=== PATIENT | male | born 1960 | race Hispanic/Latino ===

== ENCOUNTER 2020-12-28 13:29 | Inpatient (IN) | payer SELFPAY ==
[2020-12-28] VITALS (13 sets, daily range): BP systolic 133–144; BP diastolic 80–115; PULSE 49–90; RESP 16–20; TEMP 36.2–36.6; O2SAT 96–100; BMI 30.5; BMI 30.6
--- NOTE | ~2020-12-28 | XR_ITS ---
EXAMINATION: XR chest 1V portable EXAM DATE: 12/28/2020 13:50 INDICATION: Chest pain. TECHNIQUE: Portable AP frontal chest x-ray was obtained. There is no prior study for comparison. 0 FINDINGS: The lungs are clear. There are no pleural effusions. Cardiac silhouette is prominent but magnified on this AP technique. There is no pneumothorax suspected. The bones and soft tissues are unremarkable. IMPRESSION: No acute cardiopulmonary findings. Reviewed, dictated and finalized at location A.
--- NOTE | 2020-12-28 13:38 | ECG_ITS ---
Measurements Intervals [place] Rate: 90 P: 47 ID: [id number] QRS: -35 QRSD: 85 T: 4 QT: 351 QTc: 431 Interpretive Statements SINUS RHYTHM LEFT AXIS DEVIATION BORDERLINE R WAVE PROGRESSION, ANTERIOR LEADS BORDERLINE T WAVE ABNORMALITY- INFERIOR LEADS BASELINE WANDER- II, III, AVF BORDERLINE ECG Electronically Signed On 12-28-2020 17:49:34 CDT by Herbert Eduardo D.O.
--- NOTE | 2020-12-28 13:39 | ED.CHESTPAIN ---
HPI - Chest Pain General Chief Complaint: Chest Pain Stated Complaint: chest pain x30 mins Time Seen by Provider: 12/28/20 13:30 Source: patient, EMS and RN notes reviewed Mode of arrival: EMS Limitations: no limitations History of Present Illness HPI narrative: This is a 60 year old male with history of DM who presents for evaluation of left chest pain. He states approximately 1 hour ago he developed chest pain with left arm pain. He states his pain is worse with movement of his arm. He also reports nausea. He denies sob, diaphoresis. He also reports he had chest pain a couple days ago. He was given aspirin 324 mgPO and SL nitro by EMS. He reports his chest pain is currently 5/10 . He reports approximately 20 years ago he had a heart catheterization but it does not sound like he had stents placed. Related Data Home Medications Medication Instructions Recorded Confirmed gabapentin 600 mg PO DAILY 12/28/20 12/28/20 metformin 500 mg PO DAILY 12/28/20 12/28/20 Allergies Allergy/AdvReac Type Severity Reaction Status Date / Time No Known Allergies Allergy Verified 12/28/20 13:41 Review of Systems Review of Systems: All systems reviewed & are unremarkable except as noted in HPI and below PMFSH Past Medical History Medical History (Updated 12/28/20 @ 18:21 by Janine Mendes MD) Diabetes mellitus History of left heart catheterization Social History Social History (Updated 12/28/20 @ 18:14 by Janine Mendes MD) Smoking packs per day: 1 Smoking cigarettes per day: 20.0 Smoking status: Current every day smoker Alcohol intake: current Drinks per week: 1 Substance use: never Gender identity (if verbalized by the patient): Male Spiritual care concerns: No Exam Const: General: no acute distress and alert Orientation/consciousness: patient oriented x3 Eyes: Pupils: Equal, round and reactive pupils present EOM: EOMs intact bilaterally Chest: Chest palpation & inspection: normal inspection of the chest Resp: Effort & Inspection: normal respiratory effort and no retractions Auscultation: clear to auscultation bilaterally Cardio: Rate: regular rate Rhythm: regular rhythm Heart sounds: no murmurs GI: GI Palp: Yes Soft to palpation, No Tenderness to palpation present (GI) and No Guarding due to palpation present (GI) Auscultation: normal bowel sounds Skin: General skin exam: normal color Rashes: no rashes Neuro: General: patient oriented x3, moves all extremities, no focal motor deficits and CN's II-XI intact bilaterally Speech: normal speech Extrem: General: normal to inspection Other: no arm swelling, no drift, strong bilateral radial pulses, Psych: Mental Status: mental status grossly normal Affect: normal affect Course Consultations Consultation #1: I discussed case with Dr. Henderson. PAtient denies chest pain currently. He states patient can be placed on heparin and he will see. He states patient will likely need cath at some point but no right now. He will reassess. Date: 12/28/20 Time: 14:30 Consultation #2: I discussed case with Imani Plaza while she was in ER. She accepts patient to service. Date: 12/28/20 Time: 14:30 Vital Signs Vital signs: Vital Signs Temperature 97.8 F 12/28/20 13:33 Pulse Rate 90 12/28/20 13:33 Respiratory Rate 16 12/28/20 13:33 Blood Pressure 137/115 H 12/28/20 13:33 Pulse Oximetry 98 12/28/20 13:33 Temperature 97.8 F 12/28/20 13:33 Pulse Rate 56 L 12/28/20 17:36 Respiratory Rate 20 12/28/20 17:36 Blood Pressure 133/94 H 12/28/20 17:36 Pulse Oximetry 100 12/28/20 17:36 MDM - Chest Pain Lab Data Attestation: I reviewed the patient's lab results. Result diagrams: 12/28/20 13:42 12/28/20 13:42 Labs: Lab Results 12/28/20 12/28/20 12/28/20 Range/Units 13:42 13:42 13:42 WBC 8.6 (4.5-10.0) K/mm3 RBC 5.02 (4.6-6.20) M/mm3 Hgb 14.8 (14.0-18.0)
[2020-12-28 13:48] LABS: Basophils Absolute Auto 0.1 K/mm3 (0.0-0.1); Basophils Percent Auto 0.7 % (0.2-1.2); Eosinophils Absolute Auto 0.2 K/mm3 (0-0.3); Eosinophils Percent Auto 2.6 % (0-4.4); Hematocrit 42.3 % (42.0-52.0); Hemoglobin 14.8 g/dL (14.0-18.0); Immature Granulocyte Absolute 0.04 K/mm3 (0.00-0.031); Immature Granulocyte Percent A 0.5 % (0-0.5); Lymphocytes Absolute Auto 3.38 K/mm3 (0.9-3.2); Lymphocytes Percent Auto 39.5 % (18.3-44.2); Mean Corpuscular Hemoglobin 29.5 pg (26-34); Mean Corpuscular Volume 84.3 fl (80-100); Mean Platelet Volume 9.8 fl (7.4-10.4); Monocytes Absolute Auto 0.6 K/mm3 (0.1-0.6); Monocytes Percent Auto 7.3 % (2.6-8.5); Neutrophils Absolute Auto 4.2 K/mm3 (1.3-6.7); Neutrophils Percent Auto 49.4 % (45.5-73.1); Platelet Count Result 259 k/mm3 (150-375); Red Blood Count 5.02 M/mm3 (4.6-6.20); Red Cell Distribution Width 12.2 % (11.5-14.5); White Blood Count 8.6 K/mm3 (4.5-10.0)
[2020-12-28] MEDS: NITROGLYCERIN OINTMENT 1 INCH DOSE TRANSDERM (13:54)
[2020-12-28 13:59] LABS: Anion Gap 12 mmol/L (8-16); Blood Urea Nitrogen 12 mg/dL (9-20); Calcium 9.7 mg/dL (8.4-10.2); Carbon Dioxide 24 mmol/L (22-30); Chloride 106 mmol/L (98-107); Estimated CRCL calculation 82 ml/min; Estimated Glomerular Filt Rate > 60; Glucose 278 mg/dL (75-110); INR 0.9; Potassium 3.9 mmol/L (3.4-5.0); Prothrombin Time 12.4 Seconds (11.1-14.7); Sodium 142 mmol/L (137-145)
[2020-12-28 14:00] LABS: Partial Thromboplastin Time 26.8 SECONDS (22.3-36.8)
[2020-12-28 14:13] LABS: Troponin I 0.326 ng/mL (0.000-0.034)
[2020-12-28] MEDS: METOPROLOL TARTRATE 50 MG TAB PO (15:12)
[2020-12-28] MEDS: ONDANSETRON INJ 4 MG/2 ML VIAL IV PUSH (15:13)
[2020-12-28] MEDS: HEPARIN SODIUM 5,000 UNITS/ML VIAL 4000 UNITS IV PUSH (15:13)
[2020-12-28] MEDS: MORPHINE SULFATE (*CRX) 4 MG/ML INJ IV PUSH (15:13)
[2020-12-28] MEDS: HEPARIN SOD/D5W 100 UNITS/ML 25,000 UNITS/250 ML BAG 10 UNITS IV CONT (15:14)
--- NOTE | 2020-12-28 18:20 | PC.NURSE ---
This patient, Isidro Castillo, was admitted to IMU Room 207-01. Patient/family oriented to hospital policies and general routines including ID bracelet, bed and alarms, visiting hours, pain management, procedures, bathroom and other care routines, personal items, smoking policy, room service/diet, and visiting hours. Information on how to activate the Rapid Response Team has been discussed. Patient/Family are encouraged to report perceived risks to care and to ask questions if they do not understand what they are told or what they should do.
--- NOTE | 2020-12-28 19:27 | PM.IMHP ---
H&P: HPI History of Present Illness Date/Time: 12/28/20 19:27 this is a 60-year-old male patient who has a history of diabetes with his last A1c around 8. 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 Patient states that he may be under more stress than usual. The patient stated that he thinks that he had a cardiac catheterization in the past and had angioplasty in his 30s. The patient stated that 2 days ago he had chest pain that radiated to his left arm but then it resolved on its own. 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 For left chest pain. The patient stated that he had chest pain again 1 hour prior to coming to the emergency room. Radiated to his left arm. He said he felt slightly nauseated. The pain was worse with movement of his left arm. The patient was given a full-strength aspirin and nitro EN route. The patient stated he did have anymore chest pain med as left arm so continue to hurt. Cardiology has been consulted. The patient's troponin pulled and at baseline was 0.326 And the 3 hours 0.980. The patient was started on a heparin drip., morphine, Zofran, and metoprolol in the emergency room. The patient is being admitted to inpatient services on the date of service of 12/28/2020 Chief Complaint: Chest pain Review of Systems Review of Systems: All systems reviewed & are unremarkable except as noted in HPI and below Constitutional: Constitutional: Reports as per HPI and Reports no additional constitutional complaints Eyes: Eyes: Reports as per HPI and Reports no additional eye complaints ENT: Reports system reviewed and no additional complaints, except as documented and Reports Normal hearing present Cardiovascular: Cardiovascular: Reports no additional cardiovascular complaints Respiratory: Respiratory: Reports no additional respiratory complaints and Reports no additional respiratory complaints Gastrointestinal: Gastrointestinal: Reports as per HPI and Reports no additional gastrointestinal complaints Musculoskeletal: Musculoskeletal: Reports no additional musculoskeletal complaints Integumentary/Breasts: Skin/Breast: Reports system reviewed and no additional complaints, except as docu and Reports as per HPI Neurologic: Reports system reviewed and no additional complaints, except as documented, Reports as per HPI and Reports Normal hearing present Psychiatric: Psychiatric: Reports no additional psychiatric complaints and Reports as per HPI Endocrine: Endocrine: Reports no additional endocrine complaints Hematologic/Lymphatic: Hematologic/Lymphatic: Reports no additional hematologic/lymphatic complaints Allergic/Immunologic: Allergic/Immunologic: Reports no additional allergic/immunologic complaints [facility] Past Medical History Medical History (Updated 12/28/20 @ 19:36 by Imani Plaza NP) Diabetes mellitus Last known A1c 8.0 History of left heart catheterization Peripheral neuropathy Surgical History Surgical History (Updated 12/28/20 @ 19:36 by Imani Plaza NP) No pertinent past surgical history Family History Family History Father Alzheimer disease Daughter Epilepsy Social History Social History (Updated 12/28/20 @ 19:38 by Imani Plaza NP) Social History: 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 The patient has 4 daughters. The patient continues to smoke a pack a cigarettes a day. He would be interested in smoking cessation. The patient denies any marijuana illicit drugs or alcohol. The patient desires to be a full code and his is the durable power [place] for healthcare. Smoking packs per day: 1 Smoking cigarettes per day: 20.0 Years smoked: 40 Smoking pack-years: 40.00 Smoking status: Current every day smoker Tobacco type: ciga
[2020-12-28 20:15] LABS: Basophils Absolute Auto 0.1 K/mm3 (0.0-0.1); Basophils Percent Auto 0.7 % (0.2-1.2); Eosinophils Absolute Auto 0.2 K/mm3 (0-0.3); Hematocrit 41.7 % (42.0-52.0); Hemoglobin 14.1 g/dL (14.0-18.0); Immature Granulocyte Absolute 0.04 K/mm3 (0.00-0.031); Immature Granulocyte Percent A 0.5 % (0-0.5); Lymphocytes Absolute Auto 3.64 K/mm3 (0.9-3.2); Lymphocytes Percent Auto 43.1 % (18.3-44.2); Mean Corpuscular HGB Conc 33.8 g/dl (32-36); Mean Corpuscular Hemoglobin 28.8 pg (26-34); Mean Corpuscular Volume 85.1 fl (80-100); Monocytes Absolute Auto 0.6 K/mm3 (0.1-0.6); Neutrophils Absolute Auto 3.9 K/mm3 (1.3-6.7); Neutrophils Percent Auto 46.7 % (45.5-73.1); Platelet Count Result 236 k/mm3 (150-375); Red Cell Distribution Width 12.2 % (11.5-14.5); White Blood Count 8.4 K/mm3 (4.5-10.0)
[2020-12-28 20:24] LABS: INR 0.9; Prothrombin Time 13.1 Seconds (11.1-14.7)
[2020-12-28 20:26] LABS: Partial Thromboplastin Time 71.5 SECONDS (22.3-36.8)
[2020-12-28 20:35] LABS: Glucose Point of Care 228 mg/dl (65-105)
[2020-12-28] MEDS: MELATONIN 3 MG TABLET PO (21:28)
[2020-12-29] VITALS (12 sets, daily range): BP systolic 104–124; BP diastolic 54–74; PULSE 56–89; RESP 16–20; TEMP 36.2–37.1; O2SAT 97–100
--- NOTE | 2020-12-29 00:37 | PC.NURSE ---
Pt transferred from room 207-1 to room 209-01 on 12/28/20 at 2345. All personal belongings transported with Pt.
[2020-12-29 02:02] LABS: Partial Thromboplastin Time 59.3 SECONDS (22.3-36.8)
[2020-12-29] MEDS: HEPARIN SODIUM 5,000 UNITS/ML VIAL 3500 UNITS IV PUSH ×2 (02:28→16:11)
[2020-12-29 07:53] LABS: Basophils Absolute Auto 0.1 K/mm3 (0.0-0.1); Basophils Percent Auto 0.6 % (0.2-1.2); Eosinophils Absolute Auto 0.2 K/mm3 (0-0.3); Eosinophils Percent Auto 1.5 % (0-4.4); Hematocrit 39.9 % (42.0-52.0); Hemoglobin 13.9 g/dL (14.0-18.0); Immature Granulocyte Absolute 0.04 K/mm3 (0.00-0.031); Immature Granulocyte Percent A 0.4 % (0-0.5); Lymphocytes Absolute Auto 3.11 K/mm3 (0.9-3.2); Lymphocytes Percent Auto 28.7 % (18.3-44.2); Mean Corpuscular HGB Conc 34.8 g/dl (32-36); Mean Corpuscular Volume 83.1 fl (80-100); Mean Platelet Volume 9.6 fl (7.4-10.4); Monocytes Absolute Auto 0.7 K/mm3 (0.1-0.6); Monocytes Percent Auto 6.3 % (2.6-8.5); Neutrophils Absolute Auto 6.8 K/mm3 (1.3-6.7); Neutrophils Percent Auto 62.5 % (45.5-73.1); Platelet Count Result 221 k/mm3 (150-375); Red Cell Distribution Width 11.9 % (11.5-14.5); White Blood Count 10.8 K/mm3 (4.5-10.0)
[2020-12-29 08:29] LABS: Alanine Aminotransferase 31 U/L (4-50); Albumin Level 3.8 g/dL (3.5-5.1); Alkaline Phosphatase 75 U/L (38-126); Anion Gap 9 mmol/L (8-16); Aspartate Amino Transferase 115 U/L (17-59); Bilirubin,Total 0.7 mg/dL (0.2-1.3); Blood Urea Nitrogen 11 mg/dL (9-20); Calcium 9.4 mg/dL (8.4-10.2); Carbon Dioxide 24 mmol/L (22-30); Chloride 105 mmol/L (98-107); Estimated CRCL calculation 74 ml/min; Estimated Glomerular Filt Rate > 60; Glucose 168 mg/dL (75-110); Magnesium 1.8 mg/dL (1.6-2.3); Potassium 4.3 mmol/L (3.4-5.0); Sodium 138 mmol/L (137-145)
[2020-12-29 08:45] LABS: Glucose Point of Care 162 mg/dl (65-105)
--- NOTE | 2020-12-29 09:03 | PM.CNCAR ---
Assessment and Plan Assessment and plan (1) Non-ST elevation [place] (NSTEMI): Code(s): I21.4 - Non-ST elevation (NSTEMI) myocardial infarction Status: Acute Assessment and Plan: With troponin as high as 4.6, currently pain-free, no ischemic ST-T changes at this time, he would continue on aspirin with heparin, start low-dose metoprolol, will plan cardiac catheterization in the morning. In the event that he has any recurrence of chest pain or if he has any significant ST-T changes then will consider doing a cardiac catheterization sooner (2) Diabetes mellitus: Code(s): E11.9 - Type 2 diabetes mellitus without complications Status: Chronic (3) Tobacco abuse: Code(s): Z72.0 - Tobacco use Status: Acute Assessment and Plan: He smokes 1 pack per day he stated that he is going to try to quit now Additional Plan Thank you for allowing me to participate in this patient's care, I will be following up with you. Please do not hesitate to call me for any other inquiry History of Present Illness History of Present Illness Consult date/time: 12/29/20 09:03 60 YEARS OLD GENTLEMAN WITH HISTORY OF DIABETES MELLITU, came to the hospital because of chest pain. 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 The symptoms started the day before with heaviness that was in an out until yesterday was significant pain with the heaviness to the shoulder and radiation to the left arm. Upon arrival to the hospital 1st troponin was borderline elevated but after was given nitroglycerin and heparin pain improved and he became pain-free and he is currently is pain-free. No known history of coronary disease no history of previous myocardial infarction, however he has history of diabetes and history of smoking. EKG does not show acute ST-T changes but showed nonspecific lateral ST changes. He has no significant shortness of breath no orthopnea no PNDs no palpitation no dizziness no lightheadedness Reason For Visit: NSTEMI Review of Systems Constitutional: Constitutional: Reports no additional constitutional complaints ENT: Reports system reviewed and no additional complaints, except as documented Cardiovascular: Cardiovascular: Reports as per HPI Respiratory: Respiratory: Reports as per HPI [facility] Past Medical History Medical History Diabetes mellitus Last known A1c 8.0 History of left heart catheterization Peripheral neuropathy Surgical History Surgical History No pertinent past surgical history Family History Family History Father Alzheimer disease Daughter Epilepsy Social History Social History Social History: 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 The patient has 4 daughters. The patient continues to smoke a pack a cigarettes a day. He would be interested in smoking cessation. The patient denies any marijuana illicit drugs or alcohol. The patient desires to be a full code and his is the durable power estate attorney for healthcare. Smoking packs per day: 1 Smoking cigarettes per day: 20.0 Years smoked: 40 Smoking pack-years: 40.00 Smoking status: Current every day smoker Tobacco type: cigarettes Second hand tobacco smoke exposure: Yes Alcohol intake: current Drinks per week: 1 Substance use: never Gender identity (if verbalized by the patient): Male Spiritual care concerns: No Meds Home Medications and Allergies Home Medications Medication Instructions Recorded Confirmed Type gabapentin 600 mg PO DAILY 12/28/20 12/28/20 History metform
[2020-12-29 10:49] LABS: Cholesterol 184 mg/dL (0-200); HDL Direct 37 mg/dL; Triglycerides 183 mg/dL (<150)
[2020-12-29 11:00] LABS: LDL Cholesterol Direct 124 mg/dL
[2020-12-29 12:49] LABS: Glucose Point of Care 264 mg/dl (65-105)
[2020-12-29] MEDS: INSULIN ASPART (*BKC) 100 UNITS/ML SUB-Q (13:30)
[2020-12-29] MEDS: GABAPENTIN 300 MG CAPSULE 600 MG PO (13:45)
[2020-12-29] MEDS: HEPARIN SOD/D5W 100 UNITS/ML 25,000 UNITS/250 ML BAG 12 UNITS IV CONT (14:25)
[2020-12-29 15:01] LABS: Prothrombin Time 13.4 Seconds (11.1-14.7)
[2020-12-29 15:19] LABS: Partial Thromboplastin Time 62.6 SECONDS (22.3-36.8)
--- NOTE | 2020-12-29 15:21 | PM.IMPN ---
Progress Note: A&P Assessment and Plan (1) Non-ST elevation [place] (NSTEMI): Code(s): I21.4 - Non-ST elevation (NSTEMI) myocardial infarction Status: Acute Assessment and Plan: Patient is currently pain-free. He is on a heparin drip. He has morphine ordered for any discomfort. He was given aspirin and nitro earlier. Continue to trend troponins. Cardiology has been consulted. (2) Diabetes mellitus: Code(s): E11.9 - Type 2 diabetes mellitus without complications Status: Chronic Assessment and Plan: Check A1c. Hold metformin in the event that patient may possibly have a cardiac catheterization. Sliding scale insulin Accu-Cheks AC and HS. (3) Tobacco abuse: Code(s): Z72.0 - Tobacco use Status: Acute Assessment and Plan: The patient has considered smoking cessation. We discussed this for approximately 5 minutes. He would like to try a nicotine patch however if the patient has having acute IA, now is not the time for him to start on a nicotine patch. However respiratory talked him home about smoking cessation (4) Peripheral neuropathy: Code(s): G62.9 - Polyneuropathy, unspecified Status: Chronic Assessment and Plan: Continue gabapentin. Additional Plan 12/29/2020 Patient doing well and remains chest pain-free continue heparin drip continue medical management per cardiology Cardiac catheterization in the morning NPO at midnight Smoking cessation counseling greater than 3 minutes Time Spent With Patient Time with patient: 25 - 35 minutes Subjective Date/time seen: 12/29/20 15:21 patient with very poor insight into his current medical condition. We review risk factors for heart attack given his young age With emphasis on things that he can change. Patient is remorseful that he has consumed drugs in his younger years and has lived a very unhealthy lifestyle in the past. Exam Const: General: cooperative, healthy appearing, comfortable, no acute distress, well developed, alert, awake and Physically active Nutritional Appearance: average body habitus and well nourished Orientation/consciousness: patient oriented x3 Limitations: no limitations HENMT: Head: normal to inspection, normocephalic and atraumatic Ears: hearing grossly normal bilaterally and external ears normal General nose exam: Normal external nose present Eyes: General: appearance normal, both eyes and all related structures Alignment and Position: alignment normal Periorbital: periorbital findings normal Eyelids: eyelids normal Conjunctivae: conjunctivae normal EOM: EOMs intact bilaterally Neck: Neck: normal visual inspection, full ROM and no lymphadenopathy Chest: Chest palpation & inspection: normal inspection of the chest Resp: Effort & Inspection: normal respiratory effort Auscultation: clear to auscultation bilaterally Cardio: Rate: regular rate Rhythm: regular rhythm Heart sounds: S1 normal heart sound present and S2 normal heart sound present Peripheral pulses: Peripheral pulses 2+ throughout GI: Inspection: normal to inspection Auscultation: normal bowel sounds Rectal Exam: deferred Skin: General skin exam: normal color Lesions: no lesions Rashes: no rashes Trauma: no lacerations or abrasions Wounds: no wounds Hair: normal Nails: normal Neuro: General: patient oriented x3 Cranial nerves: Yes Equal, round and reactive pupils present and Yes Normal hearing present Cognition (Neuro): normal cognition Speech: normal speech Gait exam (Neuro): Normal gait present Motor exam (neuro): 5/5 motor strength present throughout Sensory Exam: normal sensation Extrem: General: normal to inspection Psych: Appearance: grossly normal Mental Status: mental status grossly normal Speech and movement: Normal speech and movement present Affect: normal affect Attitude: cooperative Thought process: Normal thought process present Insight: Good insight present (Psych) [employer]
[2020-12-29 18:01] LABS: Glucose Point of Care 208 mg/dl (65-105)
[2020-12-29] MEDS: MELATONIN 3 MG TABLET PO (20:52)
[2020-12-29 20:53] LABS: Glucose Point of Care 302 mg/dl (65-105)
[2020-12-29 22:25] LABS: Partial Thromboplastin Time 122.1 SECONDS (22.3-36.8)
[2020-12-30] VITALS (21 sets, daily range): BP systolic 103–131; BP diastolic 54–99; PULSE 52–98; RESP 13–21; TEMP 36.2–37; O2SAT 96–100
[2020-12-30 05:35] LABS: Partial Thromboplastin Time 93.4 SECONDS (22.3-36.8)
[2020-12-30 05:38] LABS: Anion Gap 7 mmol/L (8-16); Blood Urea Nitrogen 12 mg/dL (9-20); Calcium 9.3 mg/dL (8.4-10.2); Carbon Dioxide 25 mmol/L (22-30); Chloride 107 mmol/L (98-107); Estimated CRCL calculation 75 ml/min; Estimated Glomerular Filt Rate > 60; Glucose 176 mg/dL (75-110); Sodium 139 mmol/L (137-145)
--- NOTE | 2020-12-30 08:18 | WPDMODSED ---
Moderate Sedation Note-Pt Data Patient Data Allergies Allergy/AdvReac Type Severity Reaction Status Date / Time No Known Allergies Allergy Verified 12/28/20 13:41 Home Medications Medication Instructions Recorded Confirmed Type gabapentin 600 mg PO DAILY 12/28/20 12/28/20 History metformin 500 mg PO DAILY 12/28/20 12/28/20 History Current Medications: Active Medications Aspirin (Aspirin 81 Mg Chewable Tablet) 81 mg PO DAILY@0800 [facility] Last Admin: 12/29/20 08:41 Dose: Not Given Documented by: Dextrose (Dextrose 50% 25 Gm/50 Ml Syringe) 12.5 gm IV PUSH PRN PRN; Protocol PRN Reason: Hypoglycemia Gabapentin (Gabapentin 300 Mg Capsule) 600 mg PO DAILY [facility] Last Admin: 12/29/20 13:45 Dose: 600 mg Documented by: Glucagon (Glucagon For Inj 1 Mg Vial) 1 mg IM PRN PRN; Protocol PRN Reason: Hypoglycemia Glucose (Glucose Oral Gel 15 Gm Of Glucse In 37.5 Gm Tube) 15 gm PO PRN PRN; Protocol PRN Reason: Hypoglycemia Heparin Sodium (Porcine) (Heparin Sodium 5,000 Units/Ml Vial) 4,000 units IV PUSH PRN PRN PRN Reason: aPTT less than 55 seconds Heparin Sodium (Porcine) (Heparin Sodium 5,000 Units/Ml Vial) 3,500 units IV PUSH PRN PRN PRN Reason: aPTT 55 - 70 seconds Last Admin: 12/29/20 16:11 Dose: 3,500 units Documented by: Heparin Sodium/Dextrose (Heparin Sodium/D5w 100 Units/Ml) 25,000 units in 250 mls @ 0 mls/hr IV CONT .Q0M RAEGAN; Protocol Last Titration: 12/30/20 08:05 Dose: 0 units/hr, 0 mls/hr Documented by: Dextrose (Dextrose 5% 1,000 Ml) 1,000 mls @ 100 mls/hr IVPB PRN PRN; Protocol PRN Reason: Hypoglycemia Sodium Chloride (Normal Saline Iv) 500 mls @ 100 mls/hr IV CONT .Q5H RAEGAN Insulin Aspart (Insulin Aspart (*Bkc) 100 Units/Ml) 2 - 5 units SUB-Q TIDWM RAEGAN; Protocol Last Admin: 12/29/20 18:29 Dose: Not Given Documented by: Melatonin (Melatonin 3 Mg Tablet) 3 mg PO HS [facility] Last Admin: 12/29/20 20:52 Dose: 3 mg Documented by: Morphine Sulfate (Morphine Sulfate (*Crx) 4 Mg/Ml Inj) 4 mg IV PUSH Q2H PRN PRN Reason: Pain Rated 7-10 Nitroglycerin (Nitroglycerin Sl 0.4 Mg Tablet) 0.4 mg SUBLINGUAL Q5MIN PRN PRN Reason: Chest Pain Ondansetron HCl (Ondansetron Inj 4 Mg/2 Ml Vial) 4 mg IV PUSH Q4H PRN PRN Reason: Nausea Sedation/Anesthesia: No previous sedation/anesthesia problems (including family history). 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 The patient has 4 daughters. The patient continues to smoke a pack a cigarettes a day. He would be interested in smoking cessation. The patient denies any marijuana illicit drugs or alcohol. The patient desires to be a full code and his is the durable power civil attorney for healthcare. Smoking packs per day: 1 Smoking cigarettes per day: 20.0 Years smoked: 40 Smoking pack-years: 40.00 Smoking status: Current every day smoker Tobacco type: cigarettes Second hand tobacco smoke exposure: Yes Alcohol intake: current Drinks per week: 1 Substance use: never Gender identity (if verbalized by the patient): Male Spiritual care concerns: No Mod Sed Physical Exam Physical Exam Pre Procedural Exam: Normal: Appearance, Eyes, Ears, Nose, Neck, Throat, Airway, Lungs, Heart Size, Heart Rate, Heart Rhythm, Neuro Exam, Abdomen, Liver, Kidneys, Spleen, Breasts, Genitalia, Extremities and Skin Hours since solid foods: 8 Hours since
--- NOTE | 2020-12-30 08:48 | PM.PNCARD ---
Progress Note: A&P Assessment and Plan (1) Non-ST elevation OR (NSTEMI): Code(s): I21.4 - Non-ST elevation (NSTEMI) myocardial infarction Status: Acute Assessment and Plan: With troponin as high as 4.6, currently pain-free, no ischemic ST-T changes at this time, cardiac catheterization was done this morning, it shows subtotal LAD lesion, and diagonal severe disease, diagonal with a bifurcation lesion, other alternative will be bypass surgery. Will arrange for transfer to [facility] for the presence of surgical backup. will resume heparin with no bolus, continue with aspirin until transfer (2) Diabetes mellitus: Code(s): E11.9 - Type 2 diabetes mellitus without complications Status: Chronic (3) Tobacco abuse: Code(s): Z72.0 - Tobacco use Status: Acute Assessment and Plan: He smokes 1 pack per day he stated that he is going to try to quit now Additional Plan Thank you for allowing me to participate in this patient's care, I will be following up with you. Please do not hesitate to call me for any other inquiry Subjective Date/time seen: 12/30/20 08:48 HE FEELS BETTER TODAY, NO MORE CHEST PAIN. Cardiac catheterization done this morning showed severe subtotal occlusion of the LAD and severe disease of the 1st diagonal branch both of which are sizable vessels, has normal left ventricular systolic function. He would need have attempted high risk angioplasty to the LAD and diagonal with a bifurcation lesion, other turned will be bypass surgery. Will arrange for transfer to [facility] for the presence of surgical backup Exam Narrative: Exam Narrative: Awake alert oriented x3 not in acute distress Neck is supple no obvious JVD, no carotid bruit Chest: Good air entry bilaterally, lungs are clear to auscultation and percussion bilaterally Cardiovascular: Regular rate and rhythm, 2/6 systolic murmur noted left sternal border Abdomen: Soft nontender bowel sounds positive Extremities: No edema has good pulses distally bilaterally Objective Data Vital Signs Vital Signs: Vital Signs - 24 hr 12/29/20 10:00 12/29/20 12:00 12/29/20 14:00 Temperature 36.8 C Pulse Rate 78 69 79 Respiratory Rate 18 Blood Pressure 108/63 Pulse Oximetry 98 12/29/20 16:00 12/29/20 18:00 12/29/20 20:00 Temperature 36.6 C 37.1 C Pulse Rate 79 76 70 Respiratory Rate 18 16 Blood Pressure 104/72 104/65 Pulse Oximetry 98 97 12/29/20 23:39 12/30/20 00:00 12/30/20 03:58 Temperature 36.3 C L 36.3 C L 36.2 C L Pulse Rate 62 61 57 L Respiratory Rate 18 18 20 Blood Pressure 124/54 L 124/54 L 103/59 L Pulse Oximetry 97 97 98 12/30/20 04:00 Temperature Pulse Rate 58 L Respiratory Rate Blood Pressure Pulse Oximetry Intake/Output Intake/Output: Intake & Output 12/27/20 12/28/20 12/29/20 12/30/20 23:59 23:59 23:59 23:59 Intake Total 120 1590 Output Total 900 Balance 120 690 Meds/Results Medications: Active Medications Generic Name Dose Route Start Last Admin Trade Name Freq PRN Reason Stop Dose Admin Aspirin 81 mg 12/29/20 08:00 12/29/20 08:41 Aspirin 81 Mg Chewable Tablet PO Not Given DAILY@0800 RAEGAN Dextrose 12.5 gm 12/28/20 19:41 Dextrose 50% 25 Gm/50 Ml Syringe IV PUSH PRN PRN Hypoglycemia Protocol Gabapentin 600 mg 12/29/20 09:00 12/29/20 13:45 Gabapentin 300 Mg Capsule PO 600 mg DAILY RAEGAN Administration Glucagon 1 mg 12/28/20 19:41 Glucagon For Inj 1 Mg Vial IM PRN PRN Hypoglycemia Protocol Glucose 15 gm 12/28/20 19:41 Glucose Oral Gel 15 Gm Of Glucse In 37.5 Gm Tube PO PRN PRN Hypoglycemia Protocol Heparin Sodium (Porcine) 4,000 units 12/28/20 14:44 Heparin Sodium 5,000 Units/Ml Vial IV PUSH PRN PRN aPTT less than 55 seconds Heparin Sodium (Porcine) 3,500 units 12/28/20 14:44 12/29/20 16:11 Emily
--- NOTE | 2020-12-30 08:51 | P.PCNCC_ITS ---
Cardiac Cath Procedure Note Date of procedure:: 12/30/20 Performing physician:: Judson Henderson MD Procedure: 1. Left heart catheterization, selective coronary angiogram. 2. Left ventricular angiogram. 3. Angio-Seal device for arterial hemostasis 4. Conscious sedation. Supervisor Process Testing: Dr. Judson Henderson Complications: None. Sedation: Conscious sedation, local anesthesia, using 1 mg of Versed said, 25 mcg of fentanyl, and using 1% lidocaine for local anesthesia. starting time is 8:17 a.m. ending time is 8:37 a.m. History: 60 years old gentleman with history of diabetes mellitus, history of smoking came to hospital because of chest pain noted to have elevated troponin with non ST-elevation myocardial infarction. After further stabilization was brought to the photofinishing laboratory worker for elective cardiac catheterization for definitive diagnosis of coronary disease Technique: After informed consent was obtained from patient, was brought to the photofinishing laboratory worker, put in the photofinishing laboratory worker table, prepped and draped in usual sterile fashion. Five [place]ambian sheath was inserted into the right common femoral artery, through the sheath 5 Zambian JL4 catheter inserted, advanced to the left coronary artery, left coronary artery angiogram was obtained. The catheter was exchanged over guidewire into a 5 [place]ambian JR4 catheter, advanced to the right coronary artery, right coronary artery angiogram was obtained. The catheter then was exchanged over guidewire into this 5 [place]ian pigtail catheter, advanced to left ventricle, left ventricular angiogram was obtained. The catheter then was pulled, the sheath was pulled applying Angio-Seal device for arterial hemostasis. Patient tolerated the procedure no complication, taken from the photofinishing laboratory worker to his room in stable condition stable vital signs. Hemodynamics: aortic pressure 124/60 . LV pressure 124/04 with LVEDP of 24 mmHg Angiographic findings: Left main: Medium size artery no significant disease or stenosis. Lad medium size artery showed mid LAD with 95-99% disease, and it is a bifurcation lesion involving the 1st large diagonal branch which has 90% disease itself. The lesion in LAD starts at the level of the bifurcation, but gets severe about 12 mm from that spot, altogether seems to be bifurcation lesion in the diagonal and in the LAD Left circumflex artery, medium size artery, no significant disease or stenosis. RCA: Dominant vessel, showed mid RCA significant irregularity with a 40-50% disease. LV: Normal size left ventricle with normal left ventricular systolic function. Summary: 2 vessel severe coronary disease with bifurcation lesion of the LAD and diagonal Recommendation: he would benefit from high-risk angioplasty attempt with stenting to the diagonal to the LAD, will transfer to [facility] for that, if that is not successful then he would need coronary bypass surgery with CHINO to LAD and an venous graft to the diagonal branch.
--- NOTE | 2020-12-30 09:18 | PC.NURSE ---
[facility] flyer was given to patient.
[2020-12-30] MEDS: ASPIRIN 81 MG CHEWABLE TABLET PO (10:48)
[2020-12-30] MEDS: SODIUM CHLORIDE 0.9% IV 1,000 ML 125 ML IV CONT (10:55)
[2020-12-30] MEDS: INSULIN ASPART (*BKC) 100 UNITS/ML SUB-Q ×2 (11:03→18:07)
[2020-12-30 11:23] LABS: Partial Thromboplastin Time 36.7 SECONDS (22.3-36.8)
[2020-12-30 12:06] LABS: Glucose Point of Care 203 mg/dl (65-105)
[2020-12-30] MEDS: HEPARIN SOD/D5W 100 UNITS/ML 25,000 UNITS/250 ML BAG 12 UNITS IV CONT (13:09)
--- NOTE | 2020-12-30 16:18 | PM.TDS ---
Transfer Discharge Sum: Prov Provider Date of admission: 12/28/20 17:03 Primary care physician: TRAVEL AGENT PHYSICIAN Admitting clinician: Melany Wick MD Consults: 12/28/20 15:18 Consult to Physician Routine Comment: NOTIFIED FROM THE ED Consulting Provider: Judson Henderson Reason for consultation: NSTEMI Has provider been notified: Yes DS: Admitting Diagnosis Admitting Diagnosis Admitting Diagnosis: NSTEMI DS: Discharge Diagnosis Discharge Diagnosis (1) Non-ST elevation PR (NSTEMI): Code(s): I21.4 - Non-ST elevation (NSTEMI) myocardial infarction Status: Acute Assessment and Plan: s/p cardiac cath with findings of: Cardiac Cath Procedure Note Date of procedure:: 12/30/20 Performing physician:: Judson Henderson MD Procedure: 1. Left heart catheterization, selective coronary angiogram. 2. Left ventricular angiogram. 3. Angio-Seal device for arterial hemostasis 4. Conscious sedation. Hot Mill Operator: Dr. Judson Henderson Complications: None. Sedation: Conscious sedation, local anesthesia, using 1 mg of Versed said, 25 mcg of fentanyl, and using 1% lidocaine for local anesthesia. starting time is 8:17 a.m. ending time is 8:37 a.m. History: 60 years old gentleman with history of diabetes mellitus, history of smoking came to hospital because of chest pain noted to have elevated troponin with non ST-elevation myocardial infarction. After further stabilization was brought to the wood preserving plant laborer for elective cardiac catheterization for definitive diagnosis of coronary disease Technique: After informed consent was obtained from patient, was brought to the wood preserving plant laborer, put in the wood preserving plant laborer table, prepped and draped in usual sterile fashion. Five Cambodian sheath was inserted into the right common femoral artery, through the sheath 5 Cambodian JL4 catheter inserted, advanced to the left coronary artery, left coronary artery angiogram was obtained. The catheter was exchanged over guidewire into a 5 Cambodian JR4 catheter, advanced to the right coronary artery, right coronary artery angiogram was obtained. The catheter then was exchanged over guidewire into this 5 Cambodian pigtail catheter, advanced to left ventricle, left ventricular angiogram was obtained. The catheter then was pulled, the sheath was pulled applying Angio-Seal device for arterial hemostasis. Patient tolerated the procedure no complication, taken from the wood preserving plant laborer to his room in stable condition stable vital signs. Hemodynamics: aortic pressure 124/60 . LV pressure 124/04 with LVEDP of 24 mmHg Angiographic findings: Left main: Medium size artery no significant disease or stenosis. Lad medium size artery showed mid LAD with 95-99% disease, and it is a bifurcation lesion involving the 1st large diagonal branch which has 90% disease itself. The lesion in LAD starts at the level of the bifurcation, but gets severe about 12 mm from that spot, altogether seems to be bifurcation lesion in the diagonal and in the LAD Left circumflex artery, medium size artery, no significant disease or stenosis. RCA: Dominant vessel, showed mid RCA significant irregularity with a 40-50% disease. LV: Normal size left ventricle with normal left ventricular systolic function. Summary: 2 vessel severe coronary disease with bifurcation lesion of the LAD and diagonal Recommendation: he would benefit from high-risk angioplasty attempt with stenting to the diagonal to the LAD, will transfer to [facility] for that, if that is not successful then he would need coronary bypass surgery with CHINO to LAD and an venous graft to the diagonal branch. with lack of surgcial back up, he is planned to transfer to [facility] and is accepted there. awaitig bed availability (2) Diabetes mellitus: Code(s): E11.9 - Type 2 diabetes mellitus without complications Status: Chronic Assessment and Plan: SSi metforminon hold (3) Peripheral neuropathy:
[2020-12-30 16:57] LABS: Glucose Point of Care 266 mg/dl (65-105)
[2020-12-30 17:03] LABS: Partial Thromboplastin Time 56.2 SECONDS (22.3-36.8)
[2020-12-30] MEDS: HEPARIN SODIUM 5,000 UNITS/ML VIAL 3500 UNITS IV PUSH (18:08)
--- NOTE | 2020-12-30 20:46 | PC.NURSE ---
Room received from [facility]. Patient to go to room #806.
[2020-12-30] MEDS: MELATONIN 3 MG TABLET PO (21:01)
[2020-12-30 21:13] LABS: Glucose Point of Care 300 mg/dl (65-105)
[2020-12-31] VITALS: BP 112/72; PULSE 68; PULSE 69; RESP 20; TEMP 37.1; O2SAT 100
[2020-12-31 00:43] LABS: Partial Thromboplastin Time 90.4 SECONDS (22.3-36.8)
[2020-12-31 02:00] VITALS: PULSE 62
--- NOTE | 2020-12-31 02:25 | PC.NURSE ---
Report called to DAVIN Kenney RN. Patient transferred via [facility].
== END 2020-12-31 02:15 | disposition short-term general hospital (02) | DRG 190 ==
LOC: ANHED 15:33 → ANHIMU 18:21
PROVIDERS: Nurse Practitioner; Specialist; Admitting Provider Hospitalist; Emergency Provider General Practice; Visit Provider Internal Medicine
PROC: 4A023N7 Measurement of Cardiac Sampling and Pressure, Left Heart, Percutaneous Approach (ICD-10-PCS; CPT 93452; principal; 2020-12-30 08:00)
PROC: 4A023N7 Measurement of Cardiac Sampling and Pressure, Left Heart, Percutaneous Approach (ICD-10-PCS; 2020-12-30 08:00)
DX: I21.4 Non-ST elevation (NSTEMI) myocardial infarction (principal); I25.10 Atherosclerotic heart disease of native coronary artery without angina pectoris; E11.42 Type 2 diabetes mellitus with diabetic polyneuropathy; F17.210 Nicotine dependence, cigarettes, uncomplicated
CPT/HCPCS: 36415; 71045; 80048; 80053; 80061; 82948; 83735; 84443; 84484; 85025; 85610; 85730; 93005; 93458; 96365; 96366; 96375; 99291; A9270; C1760; C1887; C1894; G0269; J1644; J1815; J2250; J2270; J2405; J3010; J7030; J7040